=== PATIENT | female | born 1965 | race Caucasian/White ===

== ENCOUNTER 2017-09-27 01:25 | Emergency (ER) | payer MEDICARE, OTHER ==
[2017-09-27] MEDS: LIDOCAINE 1% (MDV) 20 ML INJ SC (06:27)
[2017-09-27] MEDS: DIPHTH/TET/ACEL PERTUSS (ADULT) 0.5 ML VIAL IM* (07:48)
== END 2017-09-27 08:01 | disposition home or self-care (01) ==
LOC: FTE 01:25
DX: S01.81XA Laceration without foreign body of other part of head, initial encounter (principal); E11.9 Type 2 diabetes mellitus without complications; W01.0XXA Fall on same level from slipping, tripping and stumbling without subsequent striking against object, initial encounter; Y92.038 Other place in apartment as the place of occurrence of the external cause; Z23 Encounter for immunization; Z79.4 Long term (current) use of insulin
CPT/HCPCS: 12011; 70480; 90471; 90715; 99284-25